=== PATIENT | female | born 1950 | race Two or more races ===

== ENCOUNTER 2016-10-25 08:30 | Emergency (ER) | payer MEDICARE, BC ==
[~2016-10-25] VITALS: Ht 165.1 cm; Wt 74.8 kg
[2016-10-25 08:37] VITALS: BP 131/58; PULSE 69; RESP 16; TEMP 97.7; O2SAT 97
[2016-10-25] MEDS ORDERED: ASPI81CH37 CHEW ×2 (08:59)
[2016-10-25] MEDS ORDERED: diphenhydrAMINE HCL 50 MG CAP PO ONE (09:00)
[2016-10-25] MEDS ORDERED: predniSONE 20 MG TAB PO ONE (09:00)
[2016-10-25] MEDS ORDERED: PRED20 PO (09:03)
--- NOTE | 2016-10-25 09:12 | PD ---
HPI Chief Complaint: Bite or Sting Time Seen by Provider: 08:44 Travel History International Travel<30 days: No Contact w/Intl Traveler<30days: No Traveled to known affect area: No History of Present Illness HPI This patient complains of an insect sting to her right hand. Duration 13 hours. She developed swelling of the right hand. Symptoms are localized to the right hand only. She was stung in the webspace between the first and second finger. PFSH Past Medical History Cancer: Yes (COLON) Diminished Hearing: No Influenza Vaccination: No ?: Not Menopausal: Yes Past Surgical History Abdominal Surgery: Yes (COLON RESECTION) Appendectomy: Yes Social History Alcohol Use: No Tobacco Use: No Substance Use: No Allergies-Medications (Allergen,Severity, Reaction): Coded Allergies: Penicillins (Verified Allergy, Severe, swelling, 10/25/16) Uncoded Allergies: antibotic unknown name (Allergy, Intermediate, hives, 10/25/16) Reported Meds & Prescriptions Reported Meds & Active Scripts Active Prednisone 20 Mg Tab 60 Mg PO DAILY Reported Aspirin Low Dose (Aspirin) 81 Mg Chew 81 Mg CHEW HS Aspirin Low Dose (Aspirin) 81 Mg Chew 81 Mg CHEW DAILY Review of Systems General / Constitutional: No: Fever HENT: No: Headaches Cardiovascular: No: Chest Pain or Discomfort Physical Exam Narrative NECK: Symmetrical appearance, midline trachea. No mass or crepitus. Thyroid without enlargement, tenderness, or mass. No facial swelling SKIN: Focused skin assessment reveals no rash or ulcers. Skin is warm and dry. Palpation shows no induration or nodules. Right hand: Has swelling of the right hand without tenseness or tenderness. No erythema or warmth. Flexion extension of all fingers is normal. Data Data Last Documented VS Vital Signs Date Time Temp Pulse Resp B/P (MAP) Pulse Ox O2 Delivery O2 Flow Rate FiO2 10/25/16 08:37 97.7 69 16 131/58 (82) 97 Orders Orders Diphenhydramine (Benadryl) (10/25/16 09:00) Prednisone (Deltasone) (10/25/16 09:00) MDM Medical Decision Making Medical Screen Exam Complete: Yes Emergency Medical Condition: Yes Medical Record Reviewed: Yes Differential Diagnosis Insect sting, allergic reaction, localized reaction, cellulitis Narrative Course I have reviewed the patient's electronic medical record. This patient has a localized reaction with swelling of the right hand due to insect sting. I gave her 100 mg prednisone at 50 mg of Benadryl Prescription for prednisone written for 5 days Recommend ice elevate compress and use Benadryl as needed every 6 hours Diagnosis Primary Impression: Allergic reaction to bee sting Additional Instructions: The patient was advised to follow up with their physician and return if they worsen. Ice and elevate and compress right hand Med/Other Pt SpecificInfo: Prescription(s) given Scripts Prednisone (Prednisone) 20 Mg Tab 60 MG PO DAILY, #15 TAB 0 Refills Prov: Gabino Franco MD 10/25/16 Disposition: DISCHARGE HOME Condition: Stable Gabino Franco MD Oct 25, 2016 09:12
== END 2016-10-25 09:26 | disposition home or self-care (01) ==
LOC: PHED 08:30
DX: T63.441A Toxic effect of venom of bees, accidental (unintentional), initial encounter (principal)
CPT/HCPCS: 99283; J7512; Q0163